=== PATIENT | female | born 1975 | race Caucasian/White ===

== ENCOUNTER 2018-08-15 04:25 | Inpatient (IN) | payer OTHER ==
[2018-08-15] MEDS: ONDANSETRON 4 MG INJ IV ×4 (05:08→11:02)
[2018-08-15 05:11] LABS: ADD MAN DIFF? NO
[2018-08-15 05:16] LABS: WHITE BLOOD COUNT 8.6 10^3/ul (4.8-10.8)
[2018-08-15 05:16] LABS: BASOPHILS % 0.5 % (0.0-2.0); EOSINOPHILS % 0.4 % (0.0-7.0); HEMATOCRIT 38.8 % (37.0-47.0); HEMOGLOBIN 12.2 g/dl (12.0-16.0); LYMPHOCYTES # 1.2 10^3/ul (0.8-2.9); LYMPHOCYTES % 13.6 % (15.0-51.0); MEAN CORPUSCULAR HEMOGLOBIN 28.2 pg (29.0-33.0); MEAN CORPUSCULAR HGB CONC 31.4 g/dl (32.0-37.0); MEAN CORPUSCULAR VOLUME 89.6 fl (82.0-101.0); MEAN PLATELET VOLUME 11.6 fl (7.4-10.4); MONOCYTE # 0.8 10^3/ul (0.3-0.9); MONOCYTES % 9.8 % (0.0-11.0); NEUTROPHIL # 6.5 10^3/ul (1.6-7.5); NEUTROPHILS % 75.3 % (39.0-77.0); PLATELET COUNT 183 10^3/UL (140-415); RED BLOOD COUNT 4.33 10^6/ul (4.20-5.40)
[2018-08-15] MEDS: morphine 4 MG/ML VIAL IV (05:24)
[2018-08-15] MEDS: SOD CHLORIDE 0.9% 1,000 ML IV ×3 (05:24→20:00)
[2018-08-15 05:36] LABS: ALBUMIN 4.3 g/dl (3.3-4.9); ALBUMIN/GLOBULIN RATIO 1.26; ALKALINE PHOSPHATASE 201 IU/L (42-121); ANION GAP 7 (5-13); ASPARTATE AMINO TRANSFERASE 576 IU/L (15-46); BILIRUBIN,INDIRECT 0.8 mg/dl (0-1.1); BILIRUBIN,TOTAL 3.8 mg/dl (0.2-1.3); BLOOD UREA NITROGEN 12 mg/dl (7-20); CALCIUM 9.5 mg/dl (8.4-10.2); CARBON DIOXIDE 27 mmol/L (21-31); CHLORIDE 106 mmol/L (97-110); CREATININE 0.71 mg/dl (0.44-1.00); Estimated GFR > 60 mL/min (>60); GLUCOSE 126 mg/dl (70-220); POTASSIUM 3.8 mmol/L (3.5-5.1); SODIUM 140 mmol/L (135-144); TOTAL PROTEIN 7.7 g/dl (6.1-8.1)
[2018-08-15 05:47] LABS: ALANINE AMINOTRANSFERASE 1319 IU/L (13-69)
[2018-08-15] MEDS: HYDROmorphONE 2 MG/ML SYG IV (06:04)
[2018-08-15 06:34] LABS: LIPASE 26075 U/L (23-300)
[2018-08-15 06:39] LABS: ADD UMIC YES; UR ASCORBIC ACID NEGATIVE (NEGATIVE); UR BACTERIA FEW /HPF (NONE SEEN); UR BILIRUBIN (Dip) 2+ mg/dL (NEGATIVE); UR BLOOD (Dip) NEGATIVE (NEGATIVE); UR CLARITY SLIGHTLY CLOUDY (CLEAR); UR COLOR AMBER (YELLOW); UR GLUCOSE (Dip) NEGATIVE (NEGATIVE); UR KETONES (Dip) NEGATIVE (NEGATIVE); UR LEUKOCYTE ESTERASE (Dip) 1+ Leu/ul (NEGATIVE); UR MUCUS MANY /HPF (NONE SEEN); UR NITRITE (Dip) NEGATIVE (NEGATIVE); UR NONSQUAMOUS EPITHELIAL CELL 1 /HPF (NONE SEEN); UR RBC 2 /HPF (0-5); UR SPECIFIC GRAVITY (Dip) 1.023 (1.003-1.030); UR SQUAMOUS EPITHELIAL CELL FEW /HPF (FEW); UR TOTAL PROTEIN (Dip) 1+ mg/dl (NEGATIVE); UR UROBILINOGEN (Dip) 2+ mg/dL (NEGATIVE); UR WBC 12 /HPF (0-5)
[2018-08-15] MEDS: METOCLOPRAMIDE 10 MG INJ IV ×3 (07:52→19:44)
[2018-08-15] MEDS ORDERED: ONDANSETRON 4 MG INJ IV (08:00)
[2018-08-15] MEDS ORDERED: ACETAMINOPHEN 325 MG TAB PO (08:00)
[2018-08-15] MEDS: AMPICILLIN/SULB 3 GM/NS (PMX) 100 ML IVPB (08:39)
[2018-08-15] MEDS: HYDROmorphONE 1 MG/ML SYG IV ×2 (11:02→19:50)
[2018-08-15] MEDS: PIPER-TAZO 3.375 GM IV (PMX) 100 ML IVPB ×3 (12:09→23:56)
[2018-08-15] MEDS: LORAZEPAM 2 MG INJ IV (15:07)
[2018-08-15] MEDS ORDERED: NORETHINDRONE-ETHINYL ESTR 0.5-35 TAB PO (18:30)
[2018-08-16] MEDS: HYDROmorphONE 1 MG/ML SYG IV ×3 (03:56→21:03)
[2018-08-16] MEDS: ONDANSETRON 4 MG INJ IV ×3 (03:58→21:04)
[2018-08-16] MEDS: SOD CHLORIDE 0.9% 1,000 ML IV ×2 (04:03→15:28)
[2018-08-16] MEDS: PIPER-TAZO 3.375 GM IV (PMX) 100 ML IVPB ×3 (05:35→18:09)
[2018-08-16] MEDS: LEVOTHYROXINE 25 MCG TAB PO (05:36)
[2018-08-16 05:56] LABS: ADD MAN DIFF? NO
[2018-08-16 06:00] LABS: WHITE BLOOD COUNT 12.2 10^3/ul (4.8-10.8)
[2018-08-16 06:00] LABS: BASOPHILS % 0.3 % (0.0-2.0); EOSINOPHILS % 0.2 % (0.0-7.0); HEMATOCRIT 33.1 % (37.0-47.0); HEMOGLOBIN 10.7 g/dl (12.0-16.0); LYMPHOCYTES # 1.2 10^3/ul (0.8-2.9); LYMPHOCYTES % 10.2 % (15.0-51.0); MEAN CORPUSCULAR HEMOGLOBIN 28.8 pg (29.0-33.0); MEAN CORPUSCULAR HGB CONC 32.3 g/dl (32.0-37.0); MEAN CORPUSCULAR VOLUME 89.2 fl (82.0-101.0); MEAN PLATELET VOLUME 11.8 fl (7.4-10.4); MONOCYTES % 7.8 % (0.0-11.0); NEUTROPHIL # 9.9 10^3/ul (1.6-7.5); NEUTROPHILS % 80.9 % (39.0-77.0); PLATELET COUNT 162 10^3/UL (140-415); RED BLOOD COUNT 3.71 10^6/ul (4.20-5.40); RED CELL DISTRIBUTION WIDTH 13.2 % (11.5-14.5)
[2018-08-16 06:25] LABS: ALANINE AMINOTRANSFERASE 810 IU/L (13-69); ALBUMIN 3.7 g/dl (3.3-4.9); ALBUMIN/GLOBULIN RATIO 1.15; ALKALINE PHOSPHATASE 166 IU/L (42-121); AMYLASE 328 U/L (11-123); ANION GAP 16 (5-13); ASPARTATE AMINO TRANSFERASE 183 IU/L (15-46); BILIRUBIN,INDIRECT 1.1 mg/dl (0-1.1); BILIRUBIN,TOTAL 1.1 mg/dl (0.2-1.3); BLOOD UREA NITROGEN 10 mg/dl (7-20); CALCIUM 8.7 mg/dl (8.4-10.2); CARBON DIOXIDE 20 mmol/L (21-31); CHLORIDE 104 mmol/L (97-110); CREATININE 0.58 mg/dl (0.44-1.00); Estimated GFR > 60 mL/min (>60); GLUCOSE 73 mg/dl (70-220); LIPASE 1267 U/L (23-300); POTASSIUM 3.6 mmol/L (3.5-5.1); SODIUM 140 mmol/L (135-144); TOTAL PROTEIN 6.9 g/dl (6.1-8.1)
[2018-08-16] MEDS: METOCLOPRAMIDE 10 MG INJ IV (11:17)
[2018-08-16] MEDS: D5W-0.45 NACL + KCL 20 MEQ 1,000 ML IV (20:54)
[2018-08-17] MEDS: PIPER-TAZO 3.375 GM IV (PMX) 100 ML IVPB ×3 (00:03→12:44)
[2018-08-17 05:44] LABS: ADD MAN DIFF? NO
[2018-08-17] MEDS: LEVOTHYROXINE 25 MCG TAB PO (05:47)
[2018-08-17 05:48] LABS: WHITE BLOOD COUNT 11.7 10^3/ul (4.8-10.8)
[2018-08-17 05:48] LABS: BASOPHIL # 0.1 10^3/ul (0.0-0.1); BASOPHILS % 0.4 % (0.0-2.0); EOSINOPHILS # 0.2 10^3/ul (0.0-0.5); HEMATOCRIT 30.9 % (37.0-47.0); HEMOGLOBIN 9.9 g/dl (12.0-16.0); LYMPHOCYTES # 1.3 10^3/ul (0.8-2.9); LYMPHOCYTES % 11.4 % (15.0-51.0); MEAN CORPUSCULAR HEMOGLOBIN 28.8 pg (29.0-33.0); MEAN CORPUSCULAR VOLUME 89.8 fl (82.0-101.0); MONOCYTE # 1.1 10^3/ul (0.3-0.9); NEUTROPHIL # 8.9 10^3/ul (1.6-7.5); NEUTROPHILS % 76.5 % (39.0-77.0); PLATELET COUNT 157 10^3/UL (140-415); RED BLOOD COUNT 3.44 10^6/ul (4.20-5.40); RED CELL DISTRIBUTION WIDTH 13.1 % (11.5-14.5)
[2018-08-17 06:15] LABS: ALANINE AMINOTRANSFERASE 589 IU/L (13-69); ALBUMIN 3.5 g/dl (3.3-4.9); ALKALINE PHOSPHATASE 130 IU/L (42-121); ASPARTATE AMINO TRANSFERASE 95 IU/L (15-46); BILIRUBIN,INDIRECT 0.8 mg/dl (0-1.1); BILIRUBIN,TOTAL 0.8 mg/dl (0.2-1.3); TOTAL PROTEIN 6.7 g/dl (6.1-8.1)
[2018-08-17 06:26] LABS: ALANINE AMINOTRANSFERASE 593 IU/L (13-69); ALBUMIN 3.4 g/dl (3.3-4.9); ALBUMIN/GLOBULIN RATIO 1.09; ALKALINE PHOSPHATASE 143 IU/L (42-121); ANION GAP 8 (5-13); ASPARTATE AMINO TRANSFERASE 101 IU/L (15-46); BILIRUBIN,INDIRECT 0.8 mg/dl (0-1.1); BILIRUBIN,TOTAL 0.8 mg/dl (0.2-1.3); BLOOD UREA NITROGEN 7 mg/dl (7-20); CARBON DIOXIDE 24 mmol/L (21-31); CHLORIDE 106 mmol/L (97-110); CREATININE 0.54 mg/dl (0.44-1.00); Estimated GFR > 60 mL/min (>60); GLUCOSE 85 mg/dl (70-220); POTASSIUM 3.7 mmol/L (3.5-5.1); SODIUM 138 mmol/L (135-144); TOTAL PROTEIN 6.5 g/dl (6.1-8.1)
[2018-08-17] MEDS: D5W-0.45 NACL + KCL 20 MEQ 1,000 ML IV ×2 (06:30→12:45)
[2018-08-17 06:32] LABS: LIPASE 207 U/L (23-300)
[2018-08-17 06:32] LABS: AMYLASE 103 U/L (11-123)
[2018-08-17] MEDS ORDERED: BUPIVACAINE 0.5%/EPI (SDV) 30 ML INJ (06:48)
[2018-08-17] MEDS: BUPIVACAINE 0.5%/EPI (SDV) 30 ML INJ INJ (06:52)
[2018-08-17] MEDS ORDERED: DESFLURANE 15 MIN (07:00)
[2018-08-17] MEDS ORDERED: LIDOCAINE 2% (SDV) 5 ML INJ (07:00)
[2018-08-17] MEDS: ACETAMINOPHEN 500 MG TAB PO (07:02)
[2018-08-17] MEDS ORDERED: ONDANSETRON 4 MG INJ (07:17)
[2018-08-17] MEDS ORDERED: MIDAZOLAM 1 MG/ML 2 ML INJ (07:17)
[2018-08-17] MEDS ORDERED: FENTAnyl 50 MCG/ML VIAL ×2 (07:17→08:15)
[2018-08-17] MEDS ORDERED: DEXAMETHASONE 4 MG/ML 5 ML INJ (07:17)
[2018-08-17] MEDS ORDERED: ROCURONIUM 50 MG INJ (07:17)
[2018-08-17] MEDS ORDERED: PROPOFOL 40 ML (07:17)
[2018-08-17] MEDS ORDERED: FAMOTIDINE 20 MG INJ (07:18)
[2018-08-17] MEDS ORDERED: morphine (1 MG/ML) 10ML SYRINGE IV ×2 (07:30)
[2018-08-17] MEDS ORDERED: OXYCODONE/ACETAMINOPHEN (5/325) TAB PO ×4 (07:30→08:30)
[2018-08-17] MEDS ORDERED: FENTAnyl 50 MCG/ML VIAL IV (07:30)
[2018-08-17] MEDS ORDERED: MEPERIDINE 25 MG INJ IV (07:30)
[2018-08-17] MEDS ORDERED: HYDROmorphONE 1 MG/5 ML IV SYRINGE IV (07:30)
[2018-08-17] MEDS ORDERED: ALBUTEROL 0.083% (NEB) 2.5 MG/3 ML AMP HHN (07:30)
[2018-08-17] MEDS ORDERED: LABETALOL HCL 20MG INJ IV (07:30)
[2018-08-17] MEDS ORDERED: DIPHENHYDRAMINE 50 MG INJ IV (07:30)
[2018-08-17] MEDS ORDERED: SUGAMMADEX SODIUM 200 MG/2 ML VIAL IV (08:01)
[2018-08-17] MEDS ORDERED: morphine 2 MG INJ IV (08:30)
[2018-08-17] MEDS ORDERED: ONDANSETRON 4 MG INJ IV (08:30)
[2018-08-17] MEDS: ONDANSETRON 4 MG INJ IV ×2 (08:52→13:18)
[2018-08-17] MEDS: FENTAnyl 50 MCG/ML VIAL IV (08:52)
[2018-08-17] MEDS: METOCLOPRAMIDE 10 MG INJ IV ×2 (09:15→15:41)
[2018-08-17] MEDS: HYDROmorphONE 1 MG/5 ML IV SYRINGE IV (09:29)
[2018-08-17] MEDS: HYDROmorphONE 1 MG/ML SYG IV (15:41)
== END 2018-08-17 17:02 | disposition home or self-care (01) | DRG 417 ==
LOC: E/R 04:25 → PP2 07:56
PROC: 0FT44ZZ Resection of Gallbladder, Percutaneous Endoscopic Approach (ICD-10-PCS; principal; 2018-08-17 07:26)
DX: K80.42 Calculus of bile duct with acute cholecystitis without obstruction (principal); K85.10 Biliary acute pancreatitis without necrosis or infection; E03.9 Hypothyroidism, unspecified; D64.9 Anemia, unspecified; Z83.79 Family history of other diseases of the digestive system
CPT/HCPCS: 36415; 74181; 76705; 80053; 80076; 81001; 81025; 82150; 83690; 85025; 87040; 87086; 88304; 96361; 96374; 96375; 96376; 99285-25